=== PATIENT | female | born 1980 | race Caucasian/White ===

== ENCOUNTER 2018-04-11 14:54 | Emergency (ER) | payer OTHER ==
--- NOTE | 2018-04-11 16:04 | EDPHY ---
H & P Stated Complaint: c/o sinus mitzy/running x 1 wk, cough/fatigue x 3 days, no fever Time Seen by Provider: 04/11/18 16:03 HPI/ROS: HPI: This is a 37-year-old female who presents with Chief Complaint: c/o sinus mitzy/running x 1 wk, cough/fatigue x 3 days, no fever Location: Chest Quality: Cough Duration: 7 days Signs and Symptoms: no fever, no nausea, no vomiting, no diarrhea, no urinary symptoms, no chest pain, no shortness of breath, no wheezing, + productive cough , no sore throat, no neck stiffness, no joint pain, no swollen glands, no ear pain, no rash Timing: Worsening Severity: Moderate Context: Patient reports that approximately 10 days ago she had some green sinus drainage, sinus pressure and postnasal drip. Seven days ago she developed a cough that has since become productive over the last 3 days accompanied by low-grade fevers and fatigue. She has no history of lung disease. Nonsmoker. She reports pain in her chest with coughing episodes. She has been using [id number] cold remedies without any improvement in her symptoms. 2 months ago patient was placed on amoxicillin for "sinus infection." Modifying Factors: See above Comment: ROS: A comprehensive 10 system review of systems is otherwise negative aside from elements mentioned in the history of present illness. MEDICAL/SURGICAL/SOCIAL HISTORY: Medical history: depression Surgical history: adenoma removed from L breast Social history: Never smoked. with children. Family history noncontributory. CONSTITUTIONAL: Ill but nontoxic appearing middle-aged white female, awake and alert, no obvious distress HEENT: Atraumatic and normocephalic, PERRL, EOMI. Nares patent; green rhinorrhea; moderate nasal mucosal edema; bilateral maxillary sinus tenderness reproducible with palpation. Tympanic membranes clear. Oropharynx clear, no exudate and moist pink mucosa. Airway patent. No lymphadenopathy. No meningismus. Cardiovascular: Normal S1/S2, regular rate, regular rhythm, without murmur rub or gallop. PULMONARY/CHEST: Symmetrical and nontender. Clear to auscultation bilaterally. Good air movement. No accessory muscle usage. Harsh productive cough of green sputum noted. ABDOMEN: Soft, nondistended, nontender, no rebound, no guarding, no peritoneal signs, no masses or organomegaly. No CVAT. EXTREMITIES: 2/2 pulses, strength 5/5, no deformities, no clubbing, no cyanosis or edema. NEUROLOGICAL: no focal neuro deficits. GCS 15. SKIN: Warm and dry, no erythema. no rash. Good capillary refill. Source: Patient Exam Limitations: No limitations - Medical/Surgical History Hx Asthma: No Hx Chronic Respiratory Disease: No Hx Diabetes: No Hx Cardiac Disease: No Hx Renal Disease: No Hx Cirrhosis: No Hx Alcoholism: No Hx HIV/AIDS: No Hx Splenectomy or Spleen Trauma: No Other PMH: depression, adenoma removed from L breast - Social History Smoking Status: Never smoked Constitutional: Initial Vital Signs Temperature (C) 36.9 C 04/11/18 15:05 Heart Rate 75 04/11/18 15:05 Respiratory Rate 16 04/11/18 15:05 Blood Pressure 127/85 H 04/11/18 15:05 O2 Sat (%) 98 04/11/18 15:05 O2 Delivery Mode Room Air Allergies/Adverse Reactions: No Known Allergies Allergy (Unverified 04/11/18 15:09) Home Medications: Medication Instructions Recorded Benzonatate [Tessalon Pearles (RX)] 100 mg PO Q6 PRN #12 cap 04/11/18 Doxycycline Hyclate 100 mg PO BID 7 Days tablet 04/11/18 Lexapro 04/11/18 Medical Decision Making - Diagnostics Imaging Results: Imaging Impressions Chest X-Ray 04/11/18 16:04 Impression: Negative for acute abnormality. Incidental findings as above.. ED Course/Re-evaluation: Vital signs reviewed and stable upon arrival. No hypoxia, respiratory distress. Patient has had symptoms for 10 days that are worsening. Chest x-ray ordered and my read via PACs shows no opacity, no effusion, no pneumothorax. Will treat with antibiotics due to the length of time and suspicion of now bacterial infection. Prescription given for Tessalon Perles as well. This patient was seen under the supervision of my secondary supervising physician. I discussed the care of this patient with Dr. Mg. Differential Diagnosis: Differential diagnosis includes but is not limited to sinusitis, upper respiratory infection, viral syndrome, influenza, pneumonia, bronchitis. - Data Points Medications Given: Discontinued Medications Benzonatate (Tessalon Pearles) 200 mg PO EDNOW ONE Stop: 04/11/18 16:18 Last Admin: 04/11/18 16:39 Dose: 200 mg Doxycycline Hyclate (Doxycycline Hyclate) 100 mg PO EDNOW ONE PRN Reason: Protocol Stop: 04/11/18 16:18 Last Admin: 04/11/18 16:38 Dose: 100 mg Departure - Departure Disposition: Home, Routine, Self-Care Clinical Impression: Bronchitis Sinusitis nasal Qualifiers: Sinusitis location: other Chronicity: acute Recurrence: non-recurrent Qualified Code(s): J01.80 - Other acute sinusitis Condition: Good Instructions: Decongestant/Expectorant (By mouth), Sinusitis (ED), Acute Bronchitis (ED) Additional Instructions: Take antibiotic as directed. Do not skip a dose. Take [id number] Mucinex as directed for nasal/chest congestion. Use Tessalon Perles every 6 hr as needed for cough. Consume a minimum of 8-10 glasses of water or electrolyte fluid replacement drinks that include Gatorade, Powerade, Pedialyte. Rest as much as possible until you are feeling better. Please wash your hands frequently. Return to the ER immediately if you experience fevers/chills, shortness of breath, abdominal pain, inability to tolerate oral intake, or any other symptoms that concern you. Referrals: PCP Not In,Dictionary [Medical Doctor] - As per Instructions [facility],. [Clinic] - As per Instructions Prescriptions: Benzonatate [Tessalon Pearles (RX)] 100 mg PO Q6 PRN #12 cap PRN Reason: Cough, Moderate Doxycycline Hyclate 100 mg PO BID 7 Days tablet
[2018-04-11] MEDS ORDERED: BENZONATATE 100 MG CAP PO ONE (16:17)
[2018-04-11] MEDS ORDERED: DOXYCYCLINE HYCLATE 100 MG CAP/TAB PO ONE (16:17)
[2018-04-11 17:04] VITALS: BP 117/82
== END 2018-04-11 17:04 | disposition home or self-care (01) ==
DX: J40 Bronchitis, not specified as acute or chronic (principal); J01.80 Other acute sinusitis